=== PATIENT | female | born 1955 | race Caucasian/White ===

== ENCOUNTER → 2017-12-11 11:37 | Outpatient (REF) | payer OTHER, SELFPAY ==
[2017-12-11 13:53] LABS: COMMENT (LAB VIEW ONLY) 25.73 mg/dL; Microalb ug/mg Crea 125.1 ug/mg Cr
== END ==
LOC: NCHCN 11:37
PROVIDERS: PCP Family Medicine; Visit Provider Family Medicine
DX: E11.9 Type 2 diabetes mellitus without complications (principal)
CPT/HCPCS: 82043; 82570

== ENCOUNTER → 2017-12-18 00:20 | Outpatient (CLI) | payer OTHER, SELFPAY ==
--- NOTE | 2017-12-18 08:09 | DI.REPORT_ITS ---
SYMPTOM/DIAGNOSIS: SPLINTER T14.8 LEFT HAND: No fracture or radiopaque foreign body is seen. IMPRESSION: Negative left hand.
== END ==
PROVIDERS: PCP Family Medicine; Visit Provider Family Medicine
DX: S60.552A Superficial foreign body of left hand, initial encounter (principal); T14.90XA Injury, unspecified, initial encounter
CPT/HCPCS: 73130

== ENCOUNTER 2018-01-10 11:55 | Inpatient (IN) | payer OTHER, SELFPAY ==
[2018-01-09 13:20] VITALS: BP 115/64; PULSE 80; RESP 16; TEMP 37; O2SAT 97
[2018-01-10] VITALS (17 sets, daily range): BP systolic 98–128; BP diastolic 37–73; PULSE 63–80; RESP 12–22; TEMP 36–37; O2SAT 95–99
[2018-01-10] MEDS: Lactated Ringers 1,000 ML 125 ML IV ×4 (12:55→23:23)
[2018-01-10] MEDS: LEVOFLOXACIN 500 MG/100 ML BAG 100 MG IVPB (13:50)
[2018-01-10] MEDS: CLINDAMYCIN 900 MG/50 ML BAG 50 MG IVPB (15:45)
--- NOTE | 2018-01-10 17:04 | UTER_PTH ---
PATIENT: Janeen Wolff LOC: U#:[id number] AGE/SX: 62/F ROOM: RE01/10/[address]: Leslie Saini MD : [id number] BED: A DIS: 01/11/2018 SPEC #: [id number] RECD: 01/11/18 12:44 STATUS: JUSTIN REQ #: [id number] JEFFERY: 01/10/18 17:[address]: Leslie Saini DEPT: Surgical Specimen RECD BY: Shari Hoyt ENTERED: 01/11/18 12:47 SP TYPE: UTER OTHR DR: Snata Mckeon Tissues: 1 - UTERUS W OR W/O OVARIES(NOT TUMOR/PROLAPSE) 2 - OVARY NOT TUMOR W OR W/O TUBES 3 - OVARY NOT TUMOR W OR W/O TUBES 4 - VAGINAL BIOPSY Procedures: GROSS AND MICRO LEVEL 2 GROSS AND MICRO LEVEL 4 Comments: [id number]
--- NOTE | 2018-01-10 19:55 | W.PM.OP ---
Date of service: 01/10/18 Operative Note Date of procedure: 01/10/18 Pre-op diagnosis: uterine prolapse Post-op diagnosis: same Procedure: Vaginal hysterectomy BSO Sage culdoplasty anterior cokporraphy The patient was taken to the operating room where she was properly identified and placed on operating table in the dorsal supine position. General anesthesia was induced. The patient was placed in the dorsal supine position and prepped and draped in the normal sterile fashion. A formal timeout procedure was then performed confirming patient and procedure. An exam under anesthesia was performed and it was noted that the patient had complete procidentia and 1/4? cystocele. A Sorensen catheter was then placed in the bladder without difficulty. The cervix was identified and grasped on the anterior and posterior lip with 2 tenaculums. A circumferential injection of 1% lidocaine with epi was then made in the cervix. Using the Bovie cautery on 40 a circumferential incision was made around the cervix. Using the Olivares scissors the vagina was dissected away from the cervix. Attention was then turned to the posterior aspect and the tissue was grasped and the posterior cul-de-sac and entered sharply this area was held with a 0 Vicryl long weighted speculum was then placed the uterosacral ligaments were crossclamped bilaterally with Hilary clamps, suture ligated with 0 Vicryl in a Hilary fashion and held tension was then turned to the anterior aspect and the vagina was dissected off the cervix the vesicle uterine peritoneum was noted. Cul-de-sac entered sharply without difficulty since his retractor was then placed to keep the bladder mobilized away from the surgical field. The paracervical tissue was taken down by cross clamping bilaterally cardiac suture ligated with 0 Vicryl uterine vessels were identified bilaterally cross clamped ?2 and suture ligated in a halo fashion with 0 Vicryl bilaterally. The remainder of the broad ligament was taken down the series of cross clamping with Hilary clamps and suture ligated with 0 Vicryl. The utero- ovarian ligaments were identified cross clamped ?2 bilaterally and the uterus was excised at the utero ovarian ligament. The specimen was sent to pathology for evaluation. The uterine ovarian pedicles were free tied ?1 and suture ligated ?1 with 0 Vicryl bilaterally. Attention was then turned to the bilateral salpingo-oophorectomy portion of the procedure. The right tube and ovary were grasped with the [place] clamp the IP ligament was identified and crossclamped ?2 and cut the pedicle was then tied with a free tie of 0 Vicryl and suture ligated with 0 Vicryl ?1 the pedicle was inspected and found to be hemostatic and attention was turned to the opposite side and the uterus inside the ovary and the fallopian tube grasped the IP ligament was identified crossclamped ?2 cut the pedicle was free tied ?1 with 0 Vicryl and then suture ligated with 0 Vicryl ?1. The pedicles were inspected and found to be hemostatic. The ovaries and fallopian tubes were sent to pathology for permanent evaluation. Attention was then turned to the anterior colporrhaphy portion of the procedure in the posterior aspect of the anterior vagina was clamped laterally with Allis clamps and injection of 1 % lidocaine with epinephrine made along the anterior vaginal midline using the Metzenbaum scissors a small incision was made posterior vagina this was then undermined to the level of the UV junction incised with Metzenbaum scissors the vagina was dissected off the pubo-vesicle fascia and both sharp and blunt dissection once the pillars were well identified a Ros plication suture ?2 was placed at the UV junction and the remainder of the pubovesical fascia was repaired with 2-0 Vicryl in a running interrupted fashion. The vaginal mucosa was trimmed the vaginal mucosa was then closed with 0 Vicryl and the vaginal cuff was closed with 0 Vicryl in a running locked fashion. A vaginal pack with Premarin ointment was then placed in the vagina. There was good support and the Sorensen catheter was left in situ. The patient was awakened and taken recovery in stable condition sponge lap needle and instrument count were correct ?2 Surgeon: Leslie Saini [place] [employer] Specialist: Steve Medley Anesthesia: GRACIELA Estimated blood loss (mL): 400 Pathology: other (Uterus cervic BSO vaginal mucosa ) Complications: None Patient was transported to: PACU Patient's condition: stable Indications: uterine prolapse cystocele Procedure Description: VAginal hysterectomy BSO Anterior colporapphy Mc Calls culdoplasty
--- NOTE | 2018-01-10 20:00 | ROE_ITS ---
Date of service: 01/10/18 Operative Note Date of procedure: 01/10/18 Pre-op diagnosis: uterine prolapse Post-op diagnosis: same Procedure: Vaginal hysterectomy BSO Sage culdoplasty anterior cokporraphy The patient was taken to the operating room where she was properly identified and placed on operating table in the dorsal supine position. General anesthesia was induced. The patient was placed in the dorsal supine position and prepped and draped in the normal sterile fashion. A formal timeout procedure was then performed confirming patient and procedure. An exam under anesthesia was performed and it was noted that the patient had complete procidentia and 1/4? cystocele. A Sorensen catheter was then placed in the bladder without difficulty. The cervix was identified and grasped on the anterior and posterior lip with 2 tenaculums. A circumferential injection of 1 % lidocaine with epi was then made in the cervix. Using the Bovie cautery on 40 a circumferential incision was made around the cervix. Using the Olivares scissors the vagina was dissected away from the cervix. Attention was then turned to the posterior aspect and the tissue was grasped and the posterior cul- de-sac and entered sharply this area was held with a 0 Vicryl long weighted speculum was then placed the uterosacral ligaments were crossclamped bilaterally with Hilary clamps, suture ligated with 0 Vicryl in a Hilary fashion and held tension was then turned to the anterior aspect and the vagina was dissected off the cervix the vesicle uterine peritoneum was noted. Cul-de- sac entered sharply without difficulty since his retractor was then placed to keep the bladder mobilized away from the surgical field. The paracervical tissue was taken down by cross clamping bilaterally cardiac suture ligated with 0 Vicryl uterine vessels were identified bilaterally cross clamped ?2 and suture ligated in a halo fashion with 0 Vicryl bilaterally. The remainder of the broad ligament was taken down the series of cross clamping with Hilary clamps and suture ligated with 0 Vicryl. The utero- ovarian ligaments were identified cross clamped ?2 bilaterally and the uterus was excised at the utero ovarian ligament. The specimen was sent to pathology for evaluation. The uterine ovarian pedicles were free tied ?1 and suture ligated ?1 with 0 Vicryl bilaterally. Attention was then turned to the bilateral salpingo-oophorectomy portion of the procedure. The right tube and ovary were grasped with the [place] clamp the IP ligament was identified and crossclamped ?2 and cut the pedicle was then tied with a free tie of 0 Vicryl and suture ligated with 0 Vicryl ?1 the pedicle was inspected and found to be hemostatic and attention was turned to the opposite side and the uterus inside the ovary and the fallopian tube grasped the IP ligament was identified crossclamped ?2 cut the pedicle was free tied ?1 with 0 Vicryl and then suture ligated with 0 Vicryl ? 1. The pedicles were inspected and found to be hemostatic. The ovaries and fallopian tubes were sent to pathology for permanent evaluation. Attention was then turned to the anterior colporrhaphy portion of the procedure in the posterior aspect of the anterior vagina was clamped laterally with Allis clamps and injection of 1 % lidocaine with epinephrine made along the anterior vaginal midline using the Metzenbaum scissors a small incision was made posterior vagina this was then undermined to the level of the UV junction incised with Metzenbaum scissors the vagina was dissected off the pubo-vesicle fascia and both sharp and blunt dissection once the pillars were well identified a Ros plication suture ?2 was placed at the UV junction and the remainder of the pubovesical fascia was repaired with 2-0 Vicryl in a running interrupted fashion. The vaginal mucosa was trimmed the vaginal mucosa was then closed with 0 Vicryl and the vaginal cuff was closed with 0 Vicryl in a running locked fashion. A vaginal pack with Premarin ointment was then placed in the vagina. There was good support and the Sorensen catheter was left in situ. The patient was awakened and taken recovery in stable condition sponge lap needle and instrument count were correct ?2 Surgeon: Leslie Saini Clerk Stenographer: Steve Medley Anesthesia: GRACIELA Estimated blood loss (mL): 400 Pathology: other (Uterus cervic BSO vaginal mucosa ) Complications: None Patient was transported to: PACU Patient's condition: stable Indications: uterine prolapse cystocele Procedure Description: VAginal hysterectomy BSO Anterior colporapphy Mc Calls culdoplasty
[2018-01-10] MEDS: Insulin REGULAR-Human 100 UNITS/ML UNIT IV (20:27)
[2018-01-10 20:59] LABS: HCT 31.8 % (36.0-46.0); HGB 11.3 g/dL (12.0-15.5); Mean Corp. HGB Concentration 35.5 g/dL (32.0-36.0); Mean Corpuscular Hemoglobin 30.1 pg (27.0-33.0); Mean Corpuscular Volume 84.8 fL (80-95); Mean Platelet Volume 9.4 fL (8.0-11.0); Platelet Count 167 x1000/uL (130-400); RBC 3.75 m/cumm (4.00-5.20); RBC Distribution Width 12.1 % (11.7-14.6); White Blood Cell Count 8.69 k/cumm (4.4-10.8)
[2018-01-10] MEDS: Heparin 5,000 UNITS/ML VIAL 5000 UNITS SC (22:59)
[2018-01-10] MEDS: Ketorolac 30 MG/ML VIAL IVP (22:59)
--- NOTE | 2018-01-10 23:26 | NUR.NOTE ---
2129 alert,aware,oriented x 3 female pt arrived via stretcher to room 209 with running iv ,webster in place from pacuNursing Note:
[2018-01-11 00:58] VITALS: BP 109/69; PULSE 74; RESP 18; TEMP 36.6; O2SAT 98
[2018-01-11 01:03] LABS: HCT 30.1 % (36.0-46.0); HGB 10.9 g/dL (12.0-15.5); Mean Corp. HGB Concentration 36.2 g/dL (32.0-36.0); Mean Corpuscular Hemoglobin 31.1 pg (27.0-33.0); Mean Platelet Volume 9.3 fL (8.0-11.0); Platelet Count 166 x1000/uL (130-400); RBC Distribution Width 11.8 % (11.7-14.6); White Blood Cell Count 8.02 k/cumm (4.4-10.8)
[2018-01-11] MEDS: Ketorolac 30 MG/ML VIAL IVP ×3 (02:35→13:52)
[2018-01-11] MEDS: Normal Saline Flush 10 ML SYR IV ×3 (02:40→13:52)
[2018-01-11 03:26] VITALS: BP 107/65; PULSE 64; RESP 16; TEMP 36.4; O2SAT 97
[2018-01-11 05:10] LABS: HGB 10.7 g/dL (12.0-15.5); Mean Corp. HGB Concentration 35.7 g/dL (32.0-36.0); Mean Corpuscular Hemoglobin 30.4 pg (27.0-33.0); Mean Corpuscular Volume 85.2 fL (80-95); Mean Platelet Volume 9.4 fL (8.0-11.0); Platelet Count 184 x1000/uL (130-400); RBC 3.52 m/cumm (4.00-5.20); RBC Distribution Width 11.9 % (11.7-14.6); White Blood Cell Count 7.72 k/cumm (4.4-10.8)
--- NOTE | 2018-01-11 05:47 | INITIAL_ITS ---
- If Service Date Differs Date of service: 01/11/18 Time of Service: 10:39 Care Management Initial Assess REASON FOR HOSPITALIZATION:: Uterine Prolapse PAST MEDICAL HISTORY/PAST SURGICAL HISTORY:: Bilateral cataracts, Complete uterine prolapse, H/O dermatomyositis, Type 2 diabetes mellitus, Asthma, Hypertension, H/O TIA PREVIOUS FUNCTIONAL STATUS/SOCIAL/FAMILY SUPPORTS:: Janeen resides with her Norris in [place]. She states that she has two children whom both reside in [place]. Janeen works for [employer] in [place] which she states she enjoys. Janeen is independent at baseline, she drives and manages ADL's. CURRENT FUNCTIONAL STATUS:: Janeen is lying in bed when this science writer visits this morning. She is pleasant and receptive to conversation. ADVANCE DIRECTIVES:: None on file Has patient been provided with information about the portal?: Yes Did the patient sign up for the portal?: No CODE STATUS:: Full Code INSURANCE COVERAGE / FINANCIAL ISSUES:: [facility] CURRENT HOME/COMMUNITY SERVICES/EQUIPMENT:: Currently Janeen has no services or medical equipment in the community. PRIMARY CARE PHYSICIAN:: Dr. Mckeon POTENTIAL DISCHARGE NEEDS:: F/U appointment with Dr. Saini PATIENT/FAMILY EDUCATION NEEDS:: Review DC instructions, any limitations, and ongoing DC planning discussion. ANTICIPATED BARRIERS TO DISCHARGE:: None identified at this time. TRANSPORTATION:: Via private vehicle with Norris PLAN:: Janeen will return home with no anticipated services once medically cleared. Janeen will F/U with PCP and plan of care as prescribed. Her Norris will transport when ready. Readmission - Within the Past 30 Days Yes or No: N
[2018-01-11] MEDS: MORPHine 10 MG/ML VIAL IVP (06:23)
[2018-01-11] MEDS: Lactated Ringers 1,000 ML 125 ML IV ×2 (06:25→16:11)
[2018-01-11 07:27] VITALS: BP 110/64; PULSE 75; RESP 18; TEMP 36.8; O2SAT 98
--- NOTE | 2018-01-11 09:30 | PDOC.CMIN ---
- If Service Date Differs Date of service: 01/11/18 Time of Service: 10:39 Care Management Initial Assess REASON FOR HOSPITALIZATION:: Uterine Prolapse PAST MEDICAL HISTORY/PAST SURGICAL HISTORY:: Bilateral cataracts, Complete uterine prolapse, H/O dermatomyositis, Type 2 diabetes mellitus, Asthma, Hypertension, H/O TIA PREVIOUS FUNCTIONAL STATUS/SOCIAL/FAMILY SUPPORTS:: Janeen resides with her Norris in [place]. She states that she has two children whom both reside in [place]. Janeen works for [email or web address] in [employer] which she states she enjoys. Janeen is independent at baseline, she drives and manages ADL's. CURRENT FUNCTIONAL STATUS:: Janeen is lying in bed when this senior mortgage underwriter visits this morning. She is pleasant and receptive to conversation. ADVANCE DIRECTIVES:: None on file Has patient been provided with information about the portal?: Yes Did the patient sign up for the portal?: No CODE STATUS:: Full Code INSURANCE COVERAGE / FINANCIAL ISSUES:: [facility] CURRENT HOME/COMMUNITY SERVICES/EQUIPMENT:: Currently Janeen has no services or medical equipment in the community. PRIMARY CARE PHYSICIAN:: Dr. Mckeon POTENTIAL DISCHARGE NEEDS:: F/U appointment with Dr. Saini PATIENT/FAMILY EDUCATION NEEDS:: Review DC instructions, any limitations, and ongoing DC planning discussion. ANTICIPATED BARRIERS TO DISCHARGE:: None identified at this time. TRANSPORTATION:: Via private vehicle with Norris PLAN:: Janeen will return home with no anticipated services once medically cleared. Janeen will F/U with PCP and plan of care as prescribed. Her Norris will transport when ready. Readmission - Within the Past 30 Days Yes or No: N
[2018-01-11] MEDS: Lisinopril 20 MG TAB PO (09:45)
[2018-01-11] MEDS: Heparin 5,000 UNITS/ML VIAL 5000 UNITS SC (09:45)
--- NOTE | 2018-01-11 10:56 | W.PM.PROGNOT ---
Date of service: 01/11/18 Time of Service: 10:56 Assessment and Plan (1) Cystocele with uterine prolapse: Current visit: No Status: Acute Remove webster catheter this morning Encourage ambulation Voiding trial this afternoon. If able to void and pain well controlled will discharge home this afternoon. (2) History of TIA (transient ischemic attack): Current visit: No Status: Acute Currently on SQ heparin. Will restart Plavix this evening. (3) Diabetes type 2, controlled: Current visit: No Status: Acute Will restart Metformin and Glipizide this morning. Continue to hold insulin for now. Subjective Interval history since last seen: Doing well this morning. Pain well controlled. Ambulatory within room this morning. No nausea or vomiting Tolerating regular diet. No significant vaginal bleeding. Exam Other: Vaginal packing removed with minimal old blood. No active bleeding. Webster catheter in place. Objective Objective Clinical Data: Abnormal lab results 01/10/18 01/11/18 01/11/18 Range/Units 20:54 00:57 05:07 RBC 3.75 L 3.50 L 3.52 L (4.00-5.20) m/cumm Hgb 11.3 L D 10.9 L 10.7 L (12.0-15.5) g/dL Hct 31.8 L D 30.1 L 30.0 L (36.0-46.0) % MCHC 36.2 H (32.0-36.0) g/dL Vital Signs Temp 36.8 C 01/11/18 07:27 Pulse 75 01/11/18 07:27 Resp 18 01/11/18 07:27 BP 110/64 01/11/18 07:27 Pulse Ox 98 01/11/18 07:27 Intake & Output 01/10/18 01/10/18 01/11/18 11:59 23:59 11:59 Intake Total 2138.75 / 2138.75 1469.417 / 1469.417 Output Total 1400 / 1400 900 / 900 Balance 738.75 / 738.75 569.417 / 569.417 Weight 60.3 kg Intake: IV 2118.75 / 2118.75 1469.417 / 1469.417 Oral 20 / 20 Output: Urine 1400 / 1400 900 / 900 Other: Urine Color Yellow Yellow Urine Appearance Clear Clots Comment Small streaks of blood in webster tubing Emesis Description None Laboratory Results WBC 7.72 k/cumm (4.4-10.8) 01/11/18 05:07 RBC 3.52 m/cumm (4.00-5.20) L 01/11/18 05:07 Hgb 10.7 g/dL (12.0-15.5) L 01/11/18 05:07 Hct 30.0 % (36.0-46.0) L 01/11/18 05:07 MCV 85.2 fL (80-95) 01/11/18 05:07 MCH 30.4 pg (27.0-33.0) 01/11/18 05:07 MCHC 35.7 g/dL (32.0-36.0) 01/11/18 05:07 RDW 11.9 % (11.7-14.6) 01/11/18 05:07 Plt Count 184 x1000/uL (130-400) 01/11/18 05:07 MPV 9.4 fL (8.0-11.0) 01/11/18 05:07
[2018-01-11 11:10] VITALS: BP 105/61; PULSE 83; RESP 19; TEMP 36.9; O2SAT 99
--- NOTE | 2018-01-11 12:20 | PHARADMIT ---
Admission Pharmacy Clinical Review UTERINE PROLAPSE Code Status Full Code Current Weight Wgt- 60.3 kg Renally Cleared and Narrow Therapeutic Index Meds CrCl~ 71.18 mL/min Meds-OK QTc Value / Action Taken Program na BP Control, Fever BP- 105/61 Tmax- 37C Electrolytes reviewed na DVT Prophylaxis Heparin 5,00 SC Opiate Usage / Scheduled Bowel Regimen Ordered Yes Yes Plt/SCr for Heparin / Enoxaparin Plts-184 SCr-0.70 INR for Warfarin na H/H stable, WBC/Bands H&H- 10.7/30.0 WBC- 7.72 Antibiotic appropriateness Levaquin Cultures and Sensitivities na Surgical ABX d/c within 24 hr na DM control / Insulin Dosing FSBS- 139 Glipizide, Metformin Heart Failure (Check EF%) (LENNY's, B-Block, Diuretics) Lisinopril, IV to PO Switch No Home Meds Reviewed Yes Home Meds Not Ordered Plavix, Detemir, Comments
[2018-01-11 15:32] VITALS: BP 119/66; PULSE 72; RESP 16; TEMP 37; O2SAT 98
[2018-01-11] MEDS: metFORMIN 500 MG TAB PO (16:59)
== END 2018-01-11 18:56 | disposition home or self-care (01) | DRG 743 ==
LOC: PDS 21:56 → MS 22:20
PROVIDERS: Admitting Provider Obstetrics & Gynecology; PCP Family Medicine; Visit Provider Obstetrics & Gynecology
PROC: 0UT97ZZ Resection of Uterus, Via Natural or Artificial Opening (ICD-10-PCS; CPT 58260; principal; 2018-01-10 08:50)
PROC: 0UT97ZZ Resection of Uterus, Via Natural or Artificial Opening (ICD-10-PCS; CPT 57260; 2018-01-10 08:50)
DX: N81.3 Complete uterovaginal prolapse (principal); E11.9 Type 2 diabetes mellitus without complications; Z79.4 Long term (current) use of insulin; I10 Essential (primary) hypertension; Z86.73 Personal history of transient ischemic attack (TIA), and cerebral infarction without residual deficits
CPT/HCPCS: 58262; 57285; 36415; 80051; 82947; 85027; 86850; 86900; 86901; 88305; 99233; 85025; 88302; 88307; J0131; J1100; J1644; J1885; J1956; J2250; J2270; J2405

== ENCOUNTER 2018-01-10 21:21 | Inpatient (IN) | payer OTHER, SELFPAY ==
[2018-01-09 14:50] LABS: Abs Immature Grans 0.01 k/cumm (0.0-0.09); Absolute Basophil Count 0.06 k/cumm (0.0-0.2); Absolute Eosinophil Count 0.41 k/cumm (0.0-0.7); Absolute Lymphocyte Count 1.79 k/cumm (1.2-3.4); Absolute Monocyte Count 0.37 k/cumm (0.11-0.7); Absolute Neutrophil Count 2.68 k/cumm (1.2-6.7); Basophils % 1.1; Eosinophils % 7.7; HGB 14.1 g/dL (12.0-15.5); Immature Grans % 0.2; Lymphocytes % 33.6; Mean Corp. HGB Concentration 35.3 g/dL (32.0-36.0); Mean Corpuscular Hemoglobin 30.5 pg (27.0-33.0); Mean Corpuscular Volume 86.6 fL (80-95); Mean Platelet Volume 9.4 fL (8.0-11.0); Neutrophils % 50.4; Platelet Count 236 x1000/uL (130-400); RBC 4.62 m/cumm (4.00-5.20); RBC Distribution Width 12.4 % (11.7-14.6); White Blood Cell Count 5.32 k/cumm (4.4-10.8)
[2018-01-09 15:46] LABS: Anion Gap 9.6 mmol/L (3-11); CO2 27.4 mmol/L (21.0-32.0); Chloride 101 mmol/L (98-107); Glucose 95 mg/dL (70-100); Potassium 4.4 mmol/L (3.5-5.1); Sodium 138 mmol/L (136-145)
== END 2018-01-10 21:50 | disposition home or self-care (01) | DRG 951 ==
LOC: DSU 21:49 → MS 21:49
PROVIDERS: Admitting Provider Obstetrics & Gynecology; PCP Family Medicine; Visit Provider Obstetrics & Gynecology
DX: R69 Illness, unspecified (principal)
CPT/HCPCS: 36415; 80051; 82947; 86850; 86900; 86901; 85025

== ENCOUNTER 2018-03-08 09:29 | Day surgery (SDC) | payer OTHER, SELFPAY ==
--- NOTE | 2018-03-08 09:40 | W.PM.DSUDISC ---
Discharge Plan Disposition Patient Disposition: HOME Condition: Good Discharge Details Reason For Visit: LIF FOREIGN BODY Attending Provider: Abiel Maciel Primary Care Provider: Santa Mckeon Home Meds and New Rx's Prescriptions: New ibuprofen 600 mg tablet 600 mg PO TID PRNQty: 30 RF: 3 acetaminophen 500 mg capsule 1,000 mg PO Q8H PRN (Reason: pain) Qty: 90 RF: 0 Continue albuterol sulfate 0.63 MG/3 ML solution for nebulization 0.63 mg Inhalation ALBUTERAL IH 18 GM RF: 0 lisinopril 20 MG tablet 20 mg PO DAILY RF: 0 clopidogrel [Plavix] 75 MG tablet 75 mg PO DAILY Qty: 90 RF: 3 insulin detemir U-100 [Levemir U-100 Insulin] 100 UNIT/1 ML solution RF: 0 estradiol [Estrace] 0.01 % (0.1 mg/gram) cream 1 gm VG .three times weekly Qty: 42.5 RF: 0 glipizide 10 MG tablet extended release 24hr 10 mg PO DAILY RF: 0 metformin [Fortamet] 500 MG tablet extended release 24hr 500 mg PO BID RF: 0 meclizine 25 MG tablet 25 mg PO Q6H PRN (Reason: Vertigo) Qty: 15 RF: 0 Discharge Instructions Additional Instructions: Activity: You may use your finger for light activity. No heavy gripping or lifting. Gentle active motion is encouraged after the initial dressing is removed. Dressings: You may remove the initial dressing after 48-72 hours. You can then apply a large bandaid or gauze dressing. The wound may get wet after 48 hours. Medications: You should take Tylenol and Ibuprofen for pain. You may apply ice. Follow-up: 7 days Activity:: Elevate Remove Dressings/Wound Care:: 72 hours Shower/Bathe:: 72 hours Diet:: As Tolerated Discharge Orders Discharge Orders: Discharge Order (Routine); Ordered 03/08/18 Ordered By: Abiel Maciel DS: Diagnosis Discharge Diagnosis (1) Foreign body of left index finger: Status: Acute
[2018-03-08 09:47] VITALS: BP 115/55; PULSE 64; RESP 16; TEMP 36.2; O2SAT 99
[2018-03-08] MEDS: Bupivacaine 0.25% Pres-Free 30 ML VIAL (10:13)
--- NOTE | 2018-03-08 17:41 | ROE_ITS ---
DATE OF SURGERY: March 08, 2018 PREOPERATIVE DIAGNOSIS: Left index finger foreign body, contracture of left index finger. POSTOPERATIVE DIAGNOSIS: Same. SURGERY: Excision of foreign body from left palmar index finger with release of thickened fascial ti ssue. SURGEON: Abiel Maciel M.D. ANESTHESIA: Local. ESTIMATED BLOOD LOSS: Minimal. COMPLICATIONS: None. DISPOSITION: The patient was awakened from anesthesia and taken to the PACU in a stable condition. INDICATION FOR PROCEDURE: Janeen is a 62-year-old who one month ago was coming down some railing when a piece of wood seemed to penetrate her left index finger volar surface. She was unable to remove a ll of it. Since that time she has had increasing pain as well as difficulty with flexion of the left index finger. She had tried to remove it and tried to give this time. However, it continued to bot her her. Given the patient's history and the examination, I did offer an excision of a foreign body. I discussed the risks of the procedure to include incomplete removal of the foreign body, pain, sti ffness, and damage to nerves and vessels. Despite these risks, she elected to proceed. PROCEDURE DESCRIPTION: Janeen was greeted in the preoperative holding area. Her identity was confirm ed and the correct side was identified and marked. The patient was taken back to the Operating Room and placed in a supine position. The left hand was placed on the hand table. The left index finger was identified as the correct site. The left hand was then prepped with ChloraPrep and draped in a s tandard fashion. No prophylactic antibiotics were necessary given the clean elective nature of this hand procedure. A time-out was performed for safe surgery. A Lux type incision was made starting at the flexion crease of the MCP joint and moving proximall y towards the distal palmar flexion crease. I yesenia this incision down directly over the area where s he felt the most prominence of her pain. The surgical site was then anesthetized with 0.25% bupivaca ine. Once the anesthetic had set up, the incision was made. This was taken down sharply through the skin and dermis. Blunt dissection was used after this point. Immediately, I was able to encounter a piece of wood which was quite narrow in diameter but about 5 mm in length. It was pointed directly down towards the flexor tendon. Dissection was carried down towards the flexor tendon but it did no t seem to penetrate the flexor tendon. However, there was a significant amount of dense fascial adhe sions in this area which seemed to be tethered to the flexor tendon and the superficial skin. These were resected. This then exposed the superior portion of the A1 ilia. I released the A1 ilia. I did not see any other remnant of foreign body in the tendon which would be restricting motion. She was then able to demonstrate nearly full flexion with the finger. The wound was then irrigated. No other foreign material was seen. The skin was closed with three #4-0 nylon sutures. A dressing was applied with Xeroform, 4x4s, and a conform dressing. At the end of the case all counts were correct.
== END 2018-03-08 11:00 | disposition home or self-care (01) ==
PROVIDERS: PCP Family Medicine; Visit Provider Student in an Organized Health Care Education/Training Program
PROC: (CPT 10120; principal; 2018-03-08 12:00)
DX: S60.451A Superficial foreign body of left index finger, initial encounter (principal); W45.8XXA Other foreign body or object entering through skin, initial encounter; M20.092 Other deformity of left finger(s)
CPT/HCPCS: 10120; 26455

== ENCOUNTER 2018-03-16 11:25 | Outpatient (CLI) | payer OTHER, SELFPAY ==
--- NOTE | 2018-03-16 11:23 | DI.RAD_ITS ---
SYMPTOM/DIAGNOSIS: RT SHOULDER PAIN RIGHT SHOULDER: Three views. No priors. Mild hypertrophic changes are seen at the acromioclavicular joint. The glenohumeral joint appears well maintained. The bones are intact and normally mineralized. Benign appearing soft tissue calcifications are present. IMPRESSION: Mild degenerative changes of the right AC joint.
== END 2018-03-16 11:45 ==
PROVIDERS: PCP Family Medicine; Visit Provider Student in an Organized Health Care Education/Training Program
DX: M25.511 Pain in right shoulder (principal); M19.011 Primary osteoarthritis, right shoulder
CPT/HCPCS: 73030

== ENCOUNTER 2018-03-22 00:28 | Outpatient (CLI) | payer OTHER, SELFPAY ==
--- NOTE | 2018-03-22 11:30 | DI.MAMMO_ITS ---
SYMPTOMS/DIAGNOSIS: SCREENING, Z12.31 MAMMOGRAM: Mammograms were interpreted according to the usual protocol including computer analysis with CAD system, tomosynthesis and C view imaging. The breasts are of moderate density with fairly symmetrical distribution of fibroglandular tissue. No dominant mass or clumped microcalcification is identified in either breast. The current examination is compared with previous examinations including March 2016 and there has been no gross interval change in appearance in comparison with the previous studies. CONCLUSION: No specific evidence of malignancy at this time. Routine screening examinations are suggested at yearly intervals in this age group according to the ACS/ACR guidelines. Category I. Breast density Category B. MQSA ASSESSMENT OF FINDINGS: Negative. Category 1. Patient will receive a letter notifying them of these results. BI-RADS category B. There are scattered areas of fibroglandular density.
== END 2018-03-22 00:48 ==
PROVIDERS: PCP Family Medicine; Visit Provider Family Medicine
DX: Z12.31 Encounter for screening mammogram for malignant neoplasm of breast (principal)
CPT/HCPCS: 77063; 77067

== ENCOUNTER 2018-05-25 09:35 | Day surgery (SDC) | payer OTHER, SELFPAY ==
[2018-05-25 09:49] VITALS: BP 138/85; PULSE 83; RESP 19; TEMP 35.2; O2SAT 100
[2018-05-25] MEDS: Lactated Ringers 1,000 ML 80 ML IV (10:12)
--- NOTE | 2018-05-25 12:26 | W.COLOREPORT ---
Date of service: 05/25/18 Time of Service: 12:26 Colonoscopy Report Date of procedure: 05/25/18 Pre-op diagnosis general: Screening colonoscopy Post-op diagnosis procedure note: same Procedure: Screening colonoscopy Surgeon: Ruddy Deras III Anesthesia proc note operative: MAC Pathology: none sent Complications: Other (Patient at 70 cm of scope began to have hiccups in the scope was retracted and patient was given more anesthesia with intraprocedure consultation to Dr. Cervantes) Disposition: PACU Indications: Screening colonoscopy Prep: PeggyLY Findings: Patient had a large internal hemorrhoid that was noted and some areas of sigmoid diverticulum Procedure Description: After informed consent was obtained the patient was taken to the procedure room and placed in a left decubitous position. Monitors were applied and a time out was done. The patients name, date of , procedure, allergies to medications and metal in their body was reviewed. The patient was then sedated. Once sedated and comfortable a rectal exam was done. External exam was normal. Internal exam revealed a normal sphincter tone and no palpable masses. The scope was then introduced and retrofelexed. An internal hemorrhoid was identified. The scope was then advanced to the cecum min difficulty. At 70 cm of scope the patient developed uncontrolled hiccups and the case was aborted at this time. Intraoperative consultation to Dr. Cervantes was made and after additional medications by anesthesia the scope was reperformed and to the cecum at 80 cm. The TI and appendiceal orifice were identified. The prep was adequate. The scope was then slowly retracted over 6 minutes back into the rectum. No Polyps were removed. The scope was removed and the patient was woken up and taken back to Same day surgery in stable condition. The patient tolerated the procedure well and there were no immediate complications. Follow up: The patient should follow up in 10 years unless they develop changes in bowel habits or other new gastrointestinal complaints.
--- NOTE | 2018-05-25 12:29 | W.PM.DSUDISC ---
Discharge Plan Disposition Patient Disposition: HOME Condition: Stable Discharge Details Reason For Visit: Screening colonoscopy Attending Provider: Ruddy Dreas III Primary Care Provider: Santa Mckeon Home Meds and New Rx's Prescriptions: Continued bisacodyl [Dulcolax (bisacodyl)] 5 mg tablet,delayed release (DR/EC) 5 mg PO ONCE Qty: 4 RF: 0 polyethylene glycol 3350 17 gram/dose powder 255 g PO ONCE Qty: 255 RF: 0 lisinopril 20 MG tablet 20 mg PO DAILY RF: 0 clopidogrel [Plavix] 75 MG tablet 75 mg PO DAILY Qty: 90 RF: 3 Levemir U-100 Insulin 100 UNIT/1 ML solution 15 unit subcut HS RF: 0 ibuprofen 600 mg tablet 600 mg PO TID PRNQty: 30 RF: 3 acetaminophen 500 mg capsule 1,000 mg PO Q8H PRN (Reason: pain) Qty: 90 RF: 0 glipizide 10 MG tablet extended release 24hr 10 mg PO DAILY RF: 0 metformin [Fortamet] 500 MG tablet extended release 24hr 500 mg PO BID RF: 0 meclizine 25 MG tablet 25 mg PO Q6H PRN (Reason: Vertigo) Qty: 15 RF: 0 Discharge Instructions Stand Alone Forms: Colonoscopy Post Instructions, Juan Longoria (DSU) Activity:: Activity as Tolerated Diet:: As Tolerated Discharge Orders Discharge Orders: Discharge Order (Routine); Ordered 05/25/18 Ordered By: Ruddy Deras III DS: Diagnosis Discharge Diagnosis (1) Internal hemorrhoid: Status: Acute (2) Diverticulum of large intestine: Status: Acute
[2018-05-25 12:59] VITALS: BP 149/96; PULSE 82; RESP 18; TEMP 35.8; O2SAT 99
[2018-05-25 14:00] VITALS: BP 129/65; PULSE 84; RESP 18; TEMP 36.5; O2SAT 99
== END 2018-05-25 14:20 | disposition home or self-care (01) ==
PROVIDERS: PCP Family Medicine; Visit Provider Surgery
PROC: 0DJD8ZZ Inspection of Lower Intestinal Tract, Via Natural or Artificial Opening Endoscopic (ICD-10-PCS; CPT 45378; principal; 2018-05-25 10:30)
DX: Z12.11 Encounter for screening for malignant neoplasm of colon (principal); K64.0 First degree hemorrhoids; K57.30 Diverticulosis of large intestine without perforation or abscess without bleeding; R06.6 Hiccough; E11.9 Type 2 diabetes mellitus without complications; Z79.4 Long term (current) use of insulin; I10 Essential (primary) hypertension
CPT/HCPCS: 45378

== ENCOUNTER 2019-05-23 07:57 | Outpatient (CLI) | payer OTHER, SELFPAY ==
[2019-05-23 09:20] LABS: HCT 40.1 % (36.0-46.0); HGB 13.8 g/dL (12.0-15.5); Mean Corp. HGB Concentration 34.4 g/dL (32.0-36.0); Mean Corpuscular Hemoglobin 30.4 pg (27.0-33.0); Mean Corpuscular Volume 88.3 fL (80-95); Mean Platelet Volume 9.5 fL (8.0-11.0); Platelet Count 170 x1000/uL (130-400); RBC 4.54 m/cumm (4.00-5.20); RBC Distribution Width 11.9 % (11.7-14.6)
[2019-05-23 09:29] LABS: Hemoglobin A1C 7.5 % (3.8-5.6)
[2019-05-23 10:31] LABS: ALT 18 U/L (14-59); AST 18 U/L (15-37); Alkaline Phosphatase 89 U/L (46-116); Anion Gap 9.1 mmol/L (3-11); BUN 13 mg/dL (7-18); Bilirubin, Total 1.1 mg/dL (0.2-1.0); CO2 27.9 mmol/L (21.0-32.0); CREATININE 0.68 mg/dL (0.55-1.02); Calcium 9.3 mg/dL (8.5-10.1); Chloride 100 mmol/L (98-107); Ferritin 159 ng/mL (8-252); Glucose 217 mg/dL (74-106); Potassium 4.5 mmol/L (3.5-5.1); Sodium 137 mmol/L (136-145); Total Protein 7.3 g/dL (6.4-8.2)
== END 2019-05-23 08:17 ==
PROVIDERS: PCP Family Medicine; Visit Provider Family Medicine
DX: E11.9 Type 2 diabetes mellitus without complications (principal); I10 Essential (primary) hypertension; K76.0 Fatty (change of) liver, not elsewhere classified
CPT/HCPCS: 36415; 80053; 85027; 82728; 83036

== ENCOUNTER 2019-07-22 00:14 | Outpatient (CLI) | payer OTHER, SELFPAY ==
--- NOTE | 2019-07-22 09:19 | DI.MAMMO_ITS ---
EXAM: MG MAMMO SCREENING CLINICAL HISTORY: SCREENING, Z12.31 TECHNIQUE: Bilateral full field digital CC and MLO mammographic images were obtained with 3D tomosyn thesis and utilizing computer aided detection (CAD). COMPARISON: Available for comparison. FINDINGS: Masses/Architectural Distortion: None seen. Microcalcifications: No suspicious pleomorphic-type are seen. Skin Thickening/Nipple Retraction: None. IMPRESSION: 1. No significant interval change with no specific features of malignancy noted. 2. Unless there is more urgent need, screening mammography is recommended, as per [employer] guidelines. BI-RADS Cat 1 - Negative Breast Density - Category B - Scattered areas of fibroglandular density A negative radiographic report should not delay biopsy if a dominant or clinically suspicious mass is present. Up to ten percent of cancers are not identified on mammography. A negative report may reinforce clinical impression. Adenosis and dense breasts may obscure an underlying neoplasm. False positive reports average 6 to 10%. Patient will receive a letter notifying them of these results.
== END 2019-07-22 00:34 ==
PROVIDERS: PCP Family Medicine; Visit Provider Family Medicine
DX: Z12.31 Encounter for screening mammogram for malignant neoplasm of breast (principal)
CPT/HCPCS: 77063; 77067

== ENCOUNTER 2019-11-05 01:36 | Outpatient (CLI) | payer OTHER, SELFPAY ==
--- NOTE | 2019-11-05 | DI.US_ITS ---
EXAM: US ABDOMEN CLINICAL HISTORY: FATTY INFILTRATION OF LIVER, K76.0, FIB4=1.1 09/2016 TECHNIQUE: Ultrasound abdomen performed using standard protocol. COMPARISON: No exams were available for comparison FINDINGS: ABDOMINAL AORTA AND IVC: Visualized portions normal caliber. PANCREAS: Normal where visualized. LIVER: Diffuse increased echogenicity consistent with fatty infiltration. No hepatic mass is seen. Hepatopedal flow in the Portal Vein. GALLBLADDER: No evidence of cholelithiasis. No evidence of wall thickening. No pericholecystic fluid identified. BILIARY SYSTEM: Common bile duct measures 2 mm. No intrahepatic biliary ductal dilation. MELÉNDEZ'S SIGN: Negative. KIDNEYS: Kidneys are symmetric in size. No evidence of renal calculi. No evidence of hydronephrosis. No renal mass or cyst identified. SPLEEN: Not enlarged. ASCITES: None seen. IMPRESSION: Hepatic steatosis. DATA REPOSITORY:
== END 2019-11-05 01:56 ==
PROVIDERS: PCP Family Medicine; Visit Provider Family Medicine
DX: K76.0 Fatty (change of) liver, not elsewhere classified (principal)
CPT/HCPCS: 76700

== ENCOUNTER 2019-12-03 00:31 | Outpatient (CLI) | payer OTHER, SELFPAY ==
--- NOTE | 2019-12-03 09:15 | DI.NM_ITS ---
APPROVED REPORT Exam: Exercise Treadmill Patient Location: Out-Patient Room/Bed: BMI: 20.35 Baseline Rhythm: Sinus Rhythm Indications: Chest Pain on exertion Medical History Medical History: HTN, Stroke/TIA, CAD non obstructive, Diabetic ??? Insulin Cardiac Medications: Lisinopril, Clopidogrel/ Plavix Allergies: penicillin, sulfa Cardiac Risk Factors: HTN, CVD, Asthma, Diabetes (insulin) Pretest Chest Pain Characteristics: No chest pain Exercise History: Physically active Lung Sounds: Clear to auscultation Heart Sounds: Regular Stress Test Details Test: Exercise stress testing was performed using a Alonso protocol. Nuclear Acquisition: Rest Tc-99m/Stress Tc-99m 1 day Rest Isotope: Tc-99m Sestamibi. Dose: 10.6 Date: 12/03/2019 Injection Time: 0915 Stress Isotope: Tc-99m Sestamibi. Dose: 32 Date: 12/03/2019 Injection Time: 1033 HR Resting HR Supine: 61 bpm Max Heart Rate (APMHR): 158 bpm Resting HR Standin bpm Target HR (85% APMHR): 134 bpm Max HR Achieved: 145 bpm % of APMHR: 91 Recovery HR: 68 bpm HR response to stress: Normal HR response to stress BP Resting BP Supine: 148/70 mmHg Resting BP Standin/72 mmHg Max BP: 164/62 mmHg Recovery BP: 140/70 mmHg BP response to stress: Abnormal hypotensive response to stress. ECG Resting ECG: Sinus Rhythm, RBBB Stress ECG: Sinus Tachycardia ST Change: Downsloping ST depression, Horizontal ST depression Maximum ST Deviation: -2.3 mm Arrhythmia: APC's Comment: 3/10 chest tightness in stage 3 only Recovery ECG: Sinus Rhythm Comment: periods of slower then faster rates in recovery- between 63 and 85 bpm. Clinical Reason for Termination: Target HR Achieved Stress Symptoms: Chest pain Exercise duration: 6 min39 sec Highest Stage Reached: Stage 3: 3.4 mph at 14% grade. Exercise capacity: 8.06 METs Functional Capacity: Average Capacity Stress ECG Conclusion 1. Resting electrocardiogram showed right bundle branch block 2. Patient exercised on the Alonso protocol and completed a workload of 8.06 METS 3. Normal heart rate and blood pressure response to exercise. The patient achieved 91% of predicted heart rate for age 4. Chest tightness was present in the last stage of exercise relieved with rest 5. Electrocardiographically consistent with myocardial ischemia, with [address] depression in the anter olateral leads peak exercise 6. There were no significant dysrhythmias Critical Notification Critical Value: No MPI Conclusion Normal myocardial perfusion without evidence of ischemia or prior infarction EF 63% Radiologist Interpretation Radiologist agrees with Delivery Crew Worker's Interpretation. Radiologist Interpretation by: Deon Odom MD Interpretation Date/Time: 12/09/2019 14:52:21
== END 2019-12-03 00:51 ==
PROVIDERS: PCP Family Medicine; Visit Provider Family Medicine
DX: R07.89 Other chest pain (principal); I10 Essential (primary) hypertension; I25.10 Atherosclerotic heart disease of native coronary artery without angina pectoris; E11.9 Type 2 diabetes mellitus without complications; Z79.4 Long term (current) use of insulin; J45.909 Unspecified asthma, uncomplicated; I45.19 Other right bundle-branch block; R94.31 Abnormal electrocardiogram [ECG] [EKG]
CPT/HCPCS: 78452; 93017

== ENCOUNTER 2020-02-25 07:28 | Outpatient (CLI) | payer OTHER, SELFPAY ==
[2020-02-27 02:09] LABS: COVID-19 RT-PCR Result NEGATIVE (Negative)
== END 2020-02-25 07:48 ==
PROVIDERS: PCP Family Medicine; Visit Provider Family Medicine
DX: Z11.59 Encounter for screening for other viral diseases (principal); Z01.811 Encounter for preprocedural respiratory examination
CPT/HCPCS: U0003

== ENCOUNTER 2020-04-10 02:25 | Outpatient (CLI) | payer OTHER, SELFPAY ==
[2020-04-11 17:08] LABS: COVID-19 RT-PCR Result NEGATIVE (Negative)
== END 2020-04-10 02:45 ==
PROVIDERS: PCP Family Medicine; Visit Provider Family Medicine
DX: Z11.59 Encounter for screening for other viral diseases (principal); Z01.811 Encounter for preprocedural respiratory examination
CPT/HCPCS: U0003

== ENCOUNTER 2020-04-13 03:23 | Outpatient (CLI) | payer OTHER, SELFPAY ==
[2020-04-13] MEDS: Albuterol HFA 18 GM 200 PUFF INH IH (11:20)
[2020-04-13] MEDS: Inhaler, Assist Device 1 EACH MC (11:21)
--- NOTE | 2020-04-15 12:32 | W.PFT ---
Date of service: 04/13/20 Time of Service: 10:13 Pulmonary Function Test Result Interpretation Spirometry: No evidence of obstructive airways disease, no bronchodilator response Lung Volumes: Mild restriction Diffusion Capacity: Moderately reduced which is normal when corrected to alveolar volume. This represents a somewhat suboptimal patient effort therefore these results are questionable Airway Pressure: Normal Impression Mild restrictive pattern. There is mild diffusion defect which is normal when corrected to alveolar volume, however that effort was somewhat suboptimal, therefore the DLCO measurement results are questionable. Clinical Correlation therefore is recommended.
== END 2020-04-13 03:43 ==
PROVIDERS: PCP Family Medicine; Visit Provider Family Medicine
DX: R06.09 Other forms of dyspnea (principal); R07.89 Other chest pain
CPT/HCPCS: 94060; 94726; 94729

== ENCOUNTER 2020-04-17 11:42 | Outpatient (REF) | payer OTHER, SELFPAY ==
[2020-04-17 19:00] LABS: HCT 38.9 % (36.0-46.0); HGB 13.6 g/dL (11.2-15.7); MCH 30.4 pg (27.0-33.0); MCV 86.8 fL (80-95); MPV 10.6 fL (8.0-11.0); Platelet Count 203 10^3/uL (130-400); RBC 4.48 10^6/uL (3.93-5.22); RDW 11.9 % (11.7-14.6); RDW-SD 37.8 fL; WBC 4.53 10^3/uL (4.4-10.8)
[2020-04-17 19:12] LABS: ALT 22 U/L (14-59); AST 18 U/L (15-37); Albumin 4.2 g/dL (3.4-5.0); Alkaline Phosphatase 70 U/L (46-116); Anion Gap 8.6 mmol/L (3-11); BUN 15 mg/dL (7-18); Bilirubin, Total 1.3 mg/dL (0.2-1.0); CO2 28.4 mmol/L (21.0-32.0); CREATININE 0.73 mg/dL (0.55-1.02); Calcium 9.3 mg/dL (8.5-10.1); Calculated LDL 121 mg/dL (<100); Chloride 100 mmol/L (98-107); Cholesterol 196 mg/dL (<200); Glucose 149 mg/dL (74-106); HDL Cholesterol 52 mg/dL (40-60); Potassium 4.7 mmol/L (3.5-5.1); Sodium 137 mmol/L (136-145); Total Protein 7.3 g/dL (6.4-8.2); Triglyceride 116 mg/dL (<150)
== END 2020-04-17 12:02 ==
LOC: NCHCN 11:42
PROVIDERS: PCP Family Medicine; Visit Provider Family Medicine
DX: E11.9 Type 2 diabetes mellitus without complications (principal); Z86.79 Personal history of other diseases of the circulatory system; K76.0 Fatty (change of) liver, not elsewhere classified
CPT/HCPCS: 80053; 80061; 85027; 83036

== ENCOUNTER 2020-04-24 12:13 | Outpatient (REF) | payer OTHER, SELFPAY ==
[2020-04-24 15:03] LABS: COMMENT (LAB VIEW ONLY) 81.08 mg/dL; Microalb ug/mg Crea 4.9 ug/mg Cr
== END 2020-04-24 12:33 ==
LOC: NCHCN 12:13
PROVIDERS: PCP Family Medicine; Visit Provider Family Medicine
DX: E11.9 Type 2 diabetes mellitus without complications (principal)
CPT/HCPCS: 82043; 82570

== ENCOUNTER 2020-07-22 01:00 | Outpatient (CLI) | payer OTHER, SELFPAY ==
--- NOTE | 2020-07-22 | DI.MAMMO_ITS ---
EXAM: MAMMO SCREENING CLINICAL HISTORY: SCREENING, Z12.31. TECHNIQUE: Bilateral full field digital CC and MLO mammographic images were obtained with 3D tomosyn thesis and utilizing computer aided detection (CAD). COMPARISON: Prior mammograms dating back to 2010, the most recent being July 2019. FINDINGS: Asymmetric densities and calcifications in both breasts are unchanged from prior studies. Also large calcification in the right axilla, probably large calcified lymph node. This is also unchanged from prior studies. There are no new spiculated masses nor new malignant-appearing microcalcification groups in either br east. There is no significant architectural distortion nor skin thickening-retraction. IMPRESSION: Stable benign findings. No radiographic evidence of malignancy. BI-RADS Category 1 - Negative Breast Density - Category B - Scattered areas of fibroglandular density Breast density Category C or D implies that the patient has dense breast tissue. Dense breast tissue can make it harder to find cancer on a mammogram. Dense breast tissue is also associated with an incr eased risk of breast cancer. This information about the result of the mammogram report was provided to the patient to raise their awareness. Use this report when you speak with the patient about their risks for breast cancer, which includes their family history. At that time, you may recommend additional screening tests (Ultrasoun d or MRI) as these tests may add significant information. A negative radiographic report should not delay biopsy if a dominant or clinically suspicious mass is present. Up to ten percent of cancers are not identified on mammography. A negative report may reinforce clinical impression. Adenosis and dense breasts may obscure an underlying neoplasm. False positive reports average 6 to 10%. Patient will receive a letter notifying them of these results.
== END 2020-07-22 01:20 ==
PROVIDERS: PCP Family Medicine; Visit Provider Family Medicine
DX: Z12.31 Encounter for screening mammogram for malignant neoplasm of breast (principal); R92.1 Mammographic calcification found on diagnostic imaging of breast
CPT/HCPCS: 77063; 77067

== ENCOUNTER 2020-09-30 15:24 | Outpatient (REF) | payer OTHER, SELFPAY ==
--- OUTSIDE RECORDS SUMMARY | 2020-09-30 15:26 | XMS_ITS ---
:1955 Author Care Team Providers Name Role Phone MARCELO Vy RIVERS Primary Care Provider [phone] Allergies Code Code System Name Reaction Severity Status Onset 723 RxNorm Amoxicillin ? ? Active ? 20301012 RxNorm Keflex ? ? Active ? Penicillins ? ? Active ? Medications Name Status Start Date Stop Date ? ? clopidogrel 75 mg tablet Active ? Not mayte ilable glipizide ER 10 mg tablet, extended Active ? Not available release 24 hr latanoprost 0.005 % eye drops Active ? No t available Levemir FlexTouch U-100 Insulin 100 Active ? Not available unit/mL (3 mL) subcutaneous pen lisinopril 20 mg tablet Active ? Not avai lable metoprolol succinate ER 25 mg Completed ? tablet,extended release 24 hr nitroglycerin 0.4 mg sublingual tablet Completed ? 05/29/2020 Proair Digihaler 90 mcg/actuation aerosol powder breath act, sen sor Active ? Not available Inhale 2 puffs every 4 hours by inhalation route. TRUEplus Pen Needle 31 gauge x 3/16 Active ? Not available Problems Name Status Onset Date Source ? Type 2 Diabetes Mellitus without Complication Active ? Hypertensive Disorder Active 02/19/2020 ? Lesion of Liver Active 02/19/2020 ? Dermatomyositis Active 02/19/2020 ? Osteoarthritis Active 02/19/2020 ? Vertigo Active 02/19/2020 ? Dyspnea Active 02/19/2020 ? Tight Chest Active 02/19/2020 ? Abdominal Bloating Active 02/19/2020 ? History of Cardiovascular Disease Active 02/19/2020 ? Alcohol Intake Exceeds Recommended Daily Active 020 ? Limit Procedures Date Name Performed by ? 05/29/2020 CT, Chest, W/o Contrast Xray [facility] [address] [place], [place] [address] (Work [address]) Results Lab Results None recorded. Past Encounters 05/29/2020 Dyspnea; Dermatomyositis Danuta Burks MD: [address] [place] [address] [address], [place] [address], Ph. Social History Tobacco Smoking Status Never Smoker Vaccine List Vaccine Type influenza, injectable, quadrivalent 05/30/2019 pneumococcal polysaccharide PPV23 11/09/2001 Td, adsorbed, preservative free, adult u se, Lf unspecified 06/20/2003 Tdap 05/30/2019 Plan of Care Reminders Provider Appointments None ? ? recorded. Lab None ? ? recorded. Referral None ? ? recorded. Procedures None ? ? recorded. Surgeries None ? ? recorded. Imaging None ? ? recorded. Vitals Height Weight BMI Blood Pressure 171.45 cm 61.2 kg 20.8 kg/m2 122/62 mm[Hg]
[2020-09-30 18:13] LABS: Hemoglobin A1C 8.2 % (<5.7)
[2020-10-01 02:52] LABS: Vitamin D 25 Total 36.9 ng/mL (30-100)
[2020-10-02 09:55] LABS: HIV-1/2 Ag & Ab Screen Negative (Negative)
== END 2020-09-30 15:25 | disposition home or self-care (01) ==
LOC: NCHCN 15:24
PROVIDERS: PCP Family Medicine; Visit Provider Family Medicine
DX: E55.9 Vitamin D deficiency, unspecified (principal); E11.9 Type 2 diabetes mellitus without complications; Z00.00 Encounter for general adult medical examination without abnormal findings; Z11.4 Encounter for screening for human immunodeficiency virus [HIV]
CPT/HCPCS: 82306; 87389; 83036

== ENCOUNTER 2020-11-19 02:18 | Outpatient (CLI) | payer OTHER, SELFPAY ==
--- NOTE | 2020-11-19 | DI.RAD_ITS ---
Exam(s) XR CHEST 2V PA LATERAL EXAM: XR CHEST 2V PA LATERAL CLINICAL HISTORY: SOB,R06.02,DERMATOMYOSITIS, M33.90. TECHNIQUE: 2D digital imaging was performed. COMPARISON: No exams were available for comparison FINDINGS: Heart size is normal. The mediastinum is not widened. Lungs are clear. No infiltrates nor pleural effusions. IMPRESSION: No acute pulmonary findings. DATA REPOSITORY: RADIATION DOSE DELIVERED:
== END 2020-11-19 02:38 ==
PROVIDERS: PCP Family Medicine; Visit Provider Internal Medicine Rheumatology
DX: R06.02 Shortness of breath (principal); M33.90 Dermatopolymyositis, unspecified, organ involvement unspecified
CPT/HCPCS: 71046

== ENCOUNTER 2020-12-16 02:24 | Outpatient (CLI) | payer OTHER, SELFPAY ==
--- NOTE | 2020-12-16 | DI.CT_ITS ---
Exam(s) CT CHEST W EXAM: CT CHEST W CLINICAL HISTORY: WT LOSS,R63.4,SOB,R06.02,DERMATOMYOSITIS,M33.90 TECHNIQUE: Imaging Protocol: Axial computed tomography images with coronal and sagittal reformatted images were created and reviewed CONTRAST MATERIAL: Intravenous: Omnipaque 350 Contrast volume:structured data in ml. COMPARISON: CT ABD PELVIS WITH CONTRAST from 09/02/2011 CT ABD PELVIS WITH CONTRAST from 09/02/2011 CR XR shoulder RT complete 2+V from 03/16/2018 CR XR shoulder RT complete 2+V from 03/16/2018 CR XR CHEST 2V PA LATERAL from 11/19/2020 CR XR CHEST 2V PA LATERAL from 11/19/2020 FINDINGS: Tracheobronchial tree: No bronchiectasis or mucous plugging. Mediastinum and Elisabeth: No dominant adenopathy or fluid collection. Pulmonary parenchyma: No consolidation or dominant measurable mass. No interstitial or nodular change s. Respiratory motion lung bases. Pleura: No effusion or pneumothorax. Heart: The heart is not dilated. Minimal coronary artery calcifications are seen. Aorta: Thoracic aorta non-dilated. Minimal calcification. Upper abdomen: Unremarkable. Lymph nodes: Within normal limits. Bones: Disc osteophytes thoracic spine. Soft tissues: Scattered calcifications in the chest wall. IMPRESSION: No acute abnormality. RADIATION DOSE DELIVERED: 361.72mGy.cm Total DLP DATA REPOSITORY: All CT scans at this facility are submitted to the National Radiology Data Registry (NRDR) Dose Index Registry (DIR) with the [employer] ([employer]). RADIATION OPTIMIZATION: All CT scans at this facility use at least one of these dose optimization te chniques: automated exposure control; mA and/or kV adjustment per patient size (includes targeted exa ms where dose is matched to clinical indication); or iterative reconstruction.
[2020-12-16 15:20] LABS: CREATININE 0.7 mg/dL (0.55-1.02)
[2020-12-16] MEDS: Normal Saline - Diluent 50 ML VIAL IV (15:46)
[2020-12-16] MEDS: Omnipaque 350 MG/ML 100 ML BTL IJ (15:55)
== END 2020-12-16 02:44 ==
PROVIDERS: PCP Family Medicine; Visit Provider Internal Medicine Rheumatology
DX: R63.4 Abnormal weight loss (principal); M33.90 Dermatopolymyositis, unspecified, organ involvement unspecified; R06.02 Shortness of breath
CPT/HCPCS: 71260; 82565; J3490

== ENCOUNTER 2021-02-12 15:53 | Outpatient (REF) | payer OTHER, SELFPAY ==
[2021-02-12 16:18] LABS: Hemoglobin A1C 7.8 % (<5.7)
== END 2021-02-12 15:54 | disposition home or self-care (01) ==
LOC: NCHCN 15:53
PROVIDERS: PCP Family Medicine; Visit Provider Family Medicine
DX: E11.9 Type 2 diabetes mellitus without complications (principal)
CPT/HCPCS: 83036

== ENCOUNTER 2021-02-19 13:00 | Outpatient (REF) | payer OTHER, SELFPAY ==
[2021-02-19 15:50] LABS: COMMENT (LAB VIEW ONLY) 67.94 mg/dL; Microalb ug/mg Crea 10.6 ug/mg Cr
== END 2021-02-19 13:01 | disposition home or self-care (01) ==
LOC: NCHCN 13:00
PROVIDERS: PCP Family Medicine; Visit Provider Family Medicine
DX: E11.9 Type 2 diabetes mellitus without complications (principal)
CPT/HCPCS: 82043; 82570

== ENCOUNTER 2021-06-14 16:41 | Outpatient (REF) | payer OTHER, SELFPAY ==
[2021-06-14 16:06] LABS: HGB 13.8 g/dL (11.2-15.7); MCH 29.4 pg (27.0-33.0); MCHC 33.7 % (32.0-36.0); MCV 87.2 fL (80-95); MPV 10.5 fL (8.0-11.0); Platelet Count 186 10^3/uL (130-400); RDW 11.9 % (11.7-14.6); RDW-SD 37.9 fL; WBC 3.93 10^3/uL (4.4-10.8)
[2021-06-14 16:20] LABS: ALT 30 U/L (14-59); AST 20 U/L (15-37); Albumin 3.9 g/dL (3.4-5.0); Alkaline Phosphatase 83 U/L (46-116); Anion Gap 8.9 mmol/L (3-11); BUN 16 mg/dL (7-18); Bilirubin, Total 1.5 mg/dL (0.2-1.0); CO2 29.1 mmol/L (21.0-32.0); CREATININE 0.8 mg/dL (0.55-1.02); Calcium 9.4 mg/dL (8.5-10.1); Chloride 98 mmol/L (98-107); Glucose 197 mg/dL (74-106); Potassium 4.3 mmol/L (3.5-5.1); Sodium 136 mmol/L (136-145); Total Protein 7.2 g/dL (6.4-8.2)
[2021-06-14 16:30] LABS: Hemoglobin A1C 7.9 % (<5.7)
== END 2021-06-14 16:42 | disposition home or self-care (01) ==
LOC: NCHCN 16:41
PROVIDERS: PCP Family Medicine; Visit Provider Family Medicine
DX: E11.9 Type 2 diabetes mellitus without complications (principal); I10 Essential (primary) hypertension; K76.0 Fatty (change of) liver, not elsewhere classified
CPT/HCPCS: 80053; 85027; 83036

== ENCOUNTER 2021-07-09 00:55 | Outpatient (CLI) | payer OTHER, SELFPAY ==
--- NOTE | 2021-07-09 09:00 | DI.DEXA_ITS ---
Exam(s) XR DEXA BONE DENSITY W/WO COLLETTE EXAM: XR DEXA BONE DENSITY W/WO COLLETTE CLINICAL HISTORY: POSTMENOPAUSAL, Z78.0; VITAMIN D DEFICIENCY, E55.9 TECHNIQUE: COMPARISON: Comparison examination is 07/30/2008. FINDINGS: Lateral Spine Image: Unremarkable. No compression deformities identified. Left hip: Total T-Score: -1.7. This compares to a 0.0 on the prior examination. Total Z-Score: -0.5 T- and Z-scores: Findings are consistent with osteopenia. Lumbar Spine: Total T-Score: 1.8. This compares to 2.8 on the prior examination. Total Z-Score: 3.5 T- and Z-scores: Within normal limits. IMPRESSION: No evidence of osteoporosis.
== END 2021-07-09 01:15 ==
PROVIDERS: PCP Family Medicine; Visit Provider Family Medicine
DX: Z13.820 Encounter for screening for osteoporosis (principal); Z78.0 Asymptomatic menopausal state; M85.88 Other specified disorders of bone density and structure, other site
CPT/HCPCS: 77080

== ENCOUNTER 2021-08-03 01:48 | Outpatient (CLI) | payer OTHER, SELFPAY ==
--- NOTE | 2021-08-03 | DI.MAMMO_ITS ---
Exam(s) MAMMO SCREENING EXAM: MAMMO SCREENING CLINICAL HISTORY: SCREENING FOR BREAST CANCER Z12.31 TECHNIQUE: Bilateral full field digital CC and MLO mammographic images were obtained with 3D tomosyn thesis and utilizing computer aided detection (CAD). COMPARISON: Available for comparison. FINDINGS: Masses/Architectural Distortion: None seen. There is no change in the breast parenchymal pattern. Microcalcifications: No suspicious pleomorphic-type are seen. Stable calcifications are seen in both breasts. Skin Thickening/Nipple Retraction: None. IMPRESSION: 1. No significant interval change with no specific features of malignancy noted. 2. Unless there is more urgent need, screening mammography is recommended, as per [employer] guidelines. BI-RADS Category 2 - Benign Findings Breast Density - Category B - Scattered areas of fibroglandular density Breast density category C or D implies that the patient has dense breast tissue. Dense breast tissue is very common and is not abnormal but dense breast tissue can make it harder to find cancer on a ma mmogram. Also, dense breast tissue may increase their breast cancer risk. This information about the result of the mammogram report was provided to the patient to raise their awareness. Use this report when you speak with the patient about their risks for breast cancer, which includes their family hist ory. At that time, you may recommend for more screening tests (Ultrasound or MRI) as they might be us eful based on their risk. A negative radiographic report should not delay biopsy if a dominant or clinically suspicious mass is present. Up to ten percent of cancers are not identified on mammography. A negative report may reinforce clinical impression. Adenosis and dense breasts may obscure an underlying neoplasm. False positive reports average 6 to 10%. Patient will receive a letter notifying them of these results.
== END 2021-08-03 02:08 ==
PROVIDERS: PCP Family Medicine; Visit Provider Family Medicine
DX: Z12.31 Encounter for screening mammogram for malignant neoplasm of breast (principal)
CPT/HCPCS: 77063; 77067

== ENCOUNTER 2022-05-30 13:08 | Outpatient (REF) | payer MEDICARE, BC, SELFPAY ==
[2022-05-30 15:44] LABS: Abs Immature Grans 0.03 10^3/uL (0.0-0.06); Absolute Basophil Count 0.05 10^3/uL (0.0-0.2); Absolute Eosinophil Count 0.07 10^3/uL (0.0-0.7); Absolute Lymphocyte Count 1.45 10^3/uL (1.2-3.4); Absolute Monocyte Count 0.36 10^3/uL (0.1-0.8); Absolute Neutrophil Count 6.85 10^3/uL (1.2-6.7); Basophils % 0.6; Eosinophils % 0.8; HCT 36.3 % (36.0-46.0); HGB 12.5 g/dL (11.2-15.7); Immature Grans % 0.3; Lymphocytes % 16.5; MCH 29.3 pg (27.0-33.0); MCHC 34.4 % (32.0-36.0); MCV 85 fL (80-95); MPV 10.1 fL (8.0-11.0); Monocytes % 4.1; Neutrophils % 77.7; Platelet Count 221 10^3/uL (130-400); RBC 4.26 10^6/uL (3.93-5.22); RDW-SD 37.2 fL; WBC 8.81 10^3/uL (4.4-10.8)
[2022-05-30 15:48] LABS: Anion Gap 8.1 mmol/L (3-11); BUN 16 mg/dL (7-18); CO2 27.9 mmol/L (21.0-32.0); CREATININE 0.8 mg/dL (0.55-1.02); Calcium 9.3 mg/dL (8.5-10.1); Chloride 103 mmol/L (98-107); Estimated GFR 81.72 (mL/min/1.73m2); Glucose 159 mg/dL (74-106); Potassium 3.8 mmol/L (3.5-5.1); Sodium 139 mmol/L (136-145)
[2022-05-30 16:09] LABS: Bilirubin Negative (Negative); Blood Negative (Negative); Clarity Sl Cloudy (Clear); Glucose 500 mg/dL (Negative); Ketones Negative (Negative); Leukocyte Esterase Negative (Negative); Nitrite Negative (Negative); Specific Gravity 1.015 (1.005-1.025); Urobilinogen 0.2 EU/dL (Up TO 0.2); pH 5.5 (5-8)
[2022-05-30 17:11] LABS: Hemoglobin A1C 6.9 % (<5.7)
== END 2022-05-30 13:09 | disposition home or self-care (01) ==
LOC: NCHCN 13:08
PROVIDERS: PCP Family Medicine; Visit Provider Family Medicine
DX: E11.9 Type 2 diabetes mellitus without complications (principal); I10 Essential (primary) hypertension; R50.9 Fever, unspecified
CPT/HCPCS: 80048; 81003; 82043; 82570; 83036; 85025

== ENCOUNTER 2022-06-27 01:27 | Outpatient (CLI) | payer MEDICARE, BC, SELFPAY ==
--- NOTE | 2022-06-27 | DI.RAD_ITS ---
Exam(s) XR HAND RT LIMITED EXAM: XR HAND RT LIMITED CLINICAL HISTORY: BILAT HAND PAIN,M65.321,M65.322, TRIGGER DIGITS,DERMATOMYOSITIS. TECHNIQUE: 2D digital imaging was performed. Three views. COMPARISON: No exams were available for comparison FINDINGS: Positioning is limited by patient's inability to straighten the fingers. BONES: No acute fracture is present. No bony destructive lesion is seen. JOINTS: No dislocation present. No significant degenerative changes. SOFT TISSUE: Normal. IMPRESSION: Unremarkable radiographs of the right hand. DATA REPOSITORY: RADIATION DOSE DELIVERED:
--- NOTE | 2022-06-27 | DI.RAD_ITS ---
Exam(s) XR HAND LT LIMITED EXAM: XR HAND LT LIMITED CLINICAL HISTORY: BILAT HAND PAIN,M65.321,M65.322,TRIGGER DIGITS,DERMATOMYOSITIS. TECHNIQUE: 2D digital imaging was performed. Two views. COMPARISON: CR XR HAND RT LIMITED from 06/27/2022 FINDINGS: BONES: No acute fracture is present. No bony destructive lesion is seen. JOINTS: No dislocation present. SOFT TISSUE: Normal. IMPRESSION: Unremarkable radiographs of the left hand. DATA REPOSITORY: RADIATION DOSE DELIVERED:
== END 2022-06-27 01:47 ==
PROVIDERS: PCP Family Medicine; Visit Provider Internal Medicine Rheumatology
DX: M65.321 Trigger finger, right index finger (principal); M65.322 Trigger finger, left index finger; M79.642 Pain in left hand; M79.641 Pain in right hand
CPT/HCPCS: 73120

== ENCOUNTER 2022-09-02 13:50 | Outpatient (REF) | payer MEDICARE, BC, SELFPAY ==
[2022-09-02 19:04] LABS: COMMENT (LAB VIEW ONLY) 31.36 mg/dL; Microalb ug/mg Crea 12.1 ug/mg Cr
== END 2022-09-02 13:51 | disposition home or self-care (01) ==
LOC: NCHCN 13:50
PROVIDERS: PCP Family Medicine; Visit Provider Family Medicine
DX: E11.9 Type 2 diabetes mellitus without complications (principal)
CPT/HCPCS: 82043; 82570

== ENCOUNTER 2022-09-15 01:38 | Outpatient (CLI) | payer MEDICARE, BC, SELFPAY ==
--- NOTE | 2022-09-15 08:30 | DI.MAMMO_ITS ---
Exam(s) MAMMO SCREENING EXAM: MAMMO SCREENING CLINICAL HISTORY: SCREENING, Z12.31. TECHNIQUE: Bilateral full field digital CC and MLO mammographic images were obtained with 3D tomosyn thesis and utilizing computer aided detection (CAD). COMPARISON: Prior mammograms were reviewed. FINDINGS: There are no new significant left breast findings. In the right breast there is an asymmetric density which appears slightly more prominent than on prio r studies, this located 4 cm in from the nipple on the CC view. Measures approximately 7 x 7 mm. Sp ot compression view recommended. There do not appear to be new findings on the ipsilateral MLO view. There are numerous benign-appearing calcifications in both breasts again noted as well as heavily trisha cified density in the right axilla which is probably lymph node. There is no significant new architectural distortion nor skin thickening-retraction. IMPRESSION: 1. No radiographic evidence of malignancy in left breast. 2. Asymmetric density right breast. Spot compression CC view and breast ultrasound recommended BI-RADS Category 0 - Assessment Incomplete: Need additional imaging evaluation Breast Density - Category B - Scattered areas of fibroglandular density Breast density Category C or D implies that the patient has dense breast tissue. Dense breast tissue can make it harder to find cancer on a mammogram. Dense breast tissue is also associated with an incr eased risk of breast cancer. This information about the result of the mammogram report was provided to the patient to raise their awareness. Use this report when you speak with the patient about their risks for breast cancer, which includes their family history. At that time, you may recommend additional screening tests (Ultrasoun d or MRI) as these tests may add significant information. A negative radiographic report should not delay biopsy if a dominant or clinically suspicious mass is present. Up to ten percent of cancers are not identified on mammography. A negative report may reinforce clinical impression. Adenosis and dense breasts may obscure an underlying neoplasm. False positive reports average 6 to 10%. Patient will receive a letter notifying them of these results.
== END 2022-09-15 01:58 ==
LOC: DI 01:38
PROVIDERS: PCP Family Medicine; Visit Provider Family Medicine
DX: Z12.31 Encounter for screening mammogram for malignant neoplasm of breast (principal); R92.8 Other abnormal and inconclusive findings on diagnostic imaging of breast
CPT/HCPCS: 77063; 77067

== ENCOUNTER 2022-09-26 01:15 | Outpatient (CLI) | payer MEDICARE, BC, SELFPAY ==
--- NOTE | 2022-09-26 | DI.US_ITS ---
Exam(s) MG MAMMO SCREEN CALL BACK UNI US BREAST RT LIMITED EXAM: MG MAMMO SCREEN CALL BACK UNI and U/S breast RT limited CLINICAL HISTORY: F/U MAMMO, RT ASYMMETRIC DENSITY, R92.8. TECHNIQUE: Craniocaudal and mediolateral oblique Full Field Digital Mammography views of the right b reast with Computer Aided Diagnosis followed by Tomosynthesis and right breast ultrasound. COMPARISON: Comparison is made with prior examinations. FINDINGS: Mammography/Tomosynthesis: Masses/Architectural Distortion: On the additional views, the area of concern dissipates. No persist ent mass is seen. No areas of architectural distortion are identified. Microcalcifictions: No suspicious pleomorphic-type are seen. Skin Thickening/Nipple Retraction: None. Right breast US: Echotexture: Normal appearance of the glandular tissue. Shadowing: No suspicious foci. Cyst: None. Solid lesions: None seen. Ductal dilation: None. IMPRESSION: 1. No evidence of malignancy is noted. 2. A six-month follow-up right mammogram is requested for re-evaluation. 3. The findings were discussed with the patient on the date of the examination. BI-RADS Category 3 - 6 month - Probably Benign Finding: Recommend follow-up imaging in 6 months Breast Density - Category B - Scattered areas of fibroglandular density Breast density Category C or D implies that the patient has dense breast tissue. Dense breast tissue can make it harder to find cancer on a mammogram. Dense breast tissue is also associated with an incr eased risk of breast cancer. This information about the result of the mammogram report was provided to the patient to raise their awareness. Use this report when you speak with the patient about their risks for breast cancer, which includes their family history. At that time, you may recommend additional screening tests (Ultrasoun d or MRI) as these tests may add significant information. A negative radiographic report should not delay biopsy if a dominant or clinically suspicious mass is present. Up to ten percent of cancers are not identified on mammography. A negative report may reinforce clinical impression. Adenosis and dense breasts may obscure an underlying neoplasm. False positive reports average 6 to 10%. Patient will receive a letter notifying them of these results.
== END 2022-09-26 01:35 ==
LOC: DI 01:15
PROVIDERS: PCP Family Medicine; Visit Provider Family Medicine
DX: R92.8 Other abnormal and inconclusive findings on diagnostic imaging of breast (principal); Z12.31 Encounter for screening mammogram for malignant neoplasm of breast
CPT/HCPCS: 76642; 77063; 77067

== ENCOUNTER 2022-11-18 15:38 | Outpatient (REF) | payer MEDICARE, BC, SELFPAY ==
[2022-11-18 16:58] LABS: HCT 40.4 % (36.0-46.0); HGB 13.8 g/dL (11.2-15.7); MCHC 34.2 % (32.0-36.0); MCV 88 fL (80-95); MPV 10.5 fL (8.0-11.0); Platelet Count 181 10^3/uL (130-400); RDW 12.7 % (11.7-14.6); RDW-SD 40.8 fL; WBC 4.65 10^3/uL (4.4-10.8)
[2022-11-18 17:44] LABS: ALT 31 U/L (14-59); AST 23 U/L (15-37); Alkaline Phosphatase 69 U/L (46-116); Anion Gap 6.9 mmol/L (3-11); BUN 23 mg/dL (7-18); Bilirubin, Total 1.4 mg/dL (0.2-1.0); CO2 28.1 mmol/L (21.0-32.0); CREATININE 0.9 mg/dL (0.55-1.02); Calcium 9.4 mg/dL (8.5-10.1); Calculated LDL 59 mg/dL (<100); Chloride 106 mmol/L (98-107); Cholesterol 126 mg/dL (<200); Estimated GFR 70.95 (mL/min/1.73m2); Glucose 114 mg/dL (74-106); HDL Cholesterol 58 mg/dL (40-60); Potassium 4.4 mmol/L (3.5-5.1); Sodium 141 mmol/L (136-145); Total Protein 7.4 g/dL (6.4-8.2); Triglyceride 46 mg/dL (<150)
[2022-11-18 21:55] LABS: Hemoglobin A1C 6.6 % (<5.7)
== END 2022-11-18 15:39 | disposition home or self-care (01) ==
LOC: NCHCN 15:38
PROVIDERS: PCP Family Medicine; Visit Provider Family Medicine
DX: E11.9 Type 2 diabetes mellitus without complications (principal); K76.0 Fatty (change of) liver, not elsewhere classified; I10 Essential (primary) hypertension
CPT/HCPCS: 80053; 80061; 85027; 83036

== ENCOUNTER → 2023-04-06 01:13 | Outpatient (CLI) | payer MEDICARE, BC, SELFPAY ==
--- NOTE | 2023-04-06 | DI.MAMMO_ITS ---
Exam(s) MG MAMMO DIAGNOSTIC UNI US BREAST RT COMPLETE EXAM: MG MAMMO DIAGNOSTIC UNI-RIGHT AND COMPLETE RIGHT BREAST ULTRASOUND CLINICAL HISTORY: 6 MO FOLLOW UP ABNL RT MAMMO, R92.8. TECHNIQUE: Unilateral BREAST CC AND MLO WELL ADDITIONAL SPOT COMPRESSION AND STRAIGHT LATERAL mammographic images were obtained with 3D tomosynthesis technique and utilizing computer aided detect ion (CAD). COMPLETE RIGHT BREAST ULTRASOUND was also performed, including all 4 quadrants as well as the axillar y region. COMPARISON: Prior mammograms dating back to 2013 were reviewed. FINDINGS: DIAGNOSTIC RIGHT BREAST MAMMOGRAM: Asymmetric density described previously is unchanged. Additional spot compression views renders this area less concerning and similar in appearance to prior mammograms. There are no new malignant-appearing microcalcification groups in the right breast. No new enterprise infrastructure architect ural distortion. COMPLETE RIGHT BREAST ULTRASOUND: There is again no evidence of solid or significant cystic lesions in all 4 quadrants of the right delvis ast. Scanning of the right axilla is negative for adenopathy IMPRESSION: Stable benign-appearing right breast findings as described above. Appropriate follow-up is to keep this patient on her yearly mammogram schedule, this implying that he r next bilateral mammogram is in 6 months from now.. The patient was informed of the findings and follow-up recommendations prior to leaving the [facility] t today. BI-RADS Category 2 - Benign Findings Breast Density - Category B - Scattered areas of fibroglandular density Breast density Category C or D implies that the patient has dense breast tissue. Dense breast tissue can make it harder to find cancer on a mammogram. Dense breast tissue is also associated with an incr eased risk of breast cancer. This information about the result of the mammogram report was provided to the patient to raise their awareness. Use this report when you speak with the patient about their risks for breast cancer, which includes their family history. At that time, you may recommend additional screening tests (Ultrasoun d or MRI) as these tests may add significant information. A negative radiographic report should not delay biopsy if a dominant or clinically suspicious mass is present. Up to ten percent of cancers are not identified on mammography. A negative report may reinforce clinical impression. Adenosis and dense breasts may obscure an underlying neoplasm. False positive reports average 6 to 10%. Patient will receive a letter notifying them of these results.
--- OUTSIDE RECORDS SUMMARY | 2023-04-06 01:15 | XMS_ITS | Continuity of Care Document ---
Author Name Unknown Organization [facility] Address [address] [place] [address] Encounter [facility] FIN NBR [id number] Date(s): 08/19/22 - 08/19/22 [facility] [address] [place] [address]- [place] Discharge Disposition: Home Allergies, Adverse Reactions, Alerts Substance Reaction Severity Status amoxicillin Unknown Unknown Active penicillin V potassium Unknown Unknown Activ e Keflex Unknown Unknown Active Assessment and Plan Future Scheduled Tests Radiology* XR Hand Complete 3+ Views Left 08/19/22 * XR Hand Complete 3+ Views Right 08/19/22 Medications clopidogrel 75 mg =, Oral, Daily, 0 Refill(s) Start Date: 08/19/22 Status: Ordered glipiZIDE 10 mg oral tablet 10 mg = 1 tab, Oral, Daily, # 30 tab, 0 Refill(s) Start Date: 08/19/22 Status: Ordered Jardiance 10 mg oral tablet 10 mg = 1 tab, Oral, every morning, # 30 tab, 0 Refill(s) Start Date: 08/19/22 Status: Ordered Levemir 100 units/mL subcutaneous solution 22 units =, Subcutaneous, Daily, 0 Refill(s) Start Date: 08/19/22 Status: Ordered lisinopril 20 mg =, Oral, Daily, 0 Refill(s) Start Date: 08/19/22 Status: Ordered Vitamin D3 50 mcg =, Oral, Daily, 0 Refill(s) Start Date: 08/19/22 Status: Ordered vitamin E 200 intl units oral capsule 200 IntlUnit = 1 cap, Oral, Daily, # 100 cap, 0 Refill(s) Start Date: 08/19/22 Status: Ordered Problem List Condition Confirmation Course Effective Dates Status Health [facility] Informant Diabetes Confirmed Active Procedures Procedure Date Related Diagnosis Body Site Status Hysterectomy 2009 Completed Appendectomy 2004 Completed Social History Social History Type Response Tobacco Never tobacco user T obacco Use:. Sex Female
--- OUTSIDE RECORDS SUMMARY | 2023-04-06 01:15 | XMS_ITS | Continuity of Care Document ---
Author Name Unknown Organization [facility] Address [address] [place] [address] Encounter [facility] FIN NBR [id number] Date(s): 08/19/22 - 08/19/22 [facility] [address] [place] [address]- [place] Discharge Disposition: Home Allergies, [...]
--- OUTSIDE RECORDS SUMMARY | 2023-04-06 01:15 | XMS_ITS | Continuity of Care Document ---
Author Name Unknown Organization [facility] Address [address] [place] [address] Encounter [facility] NBR [id number] Date(s): 08/08/22 - 08/08/22 [facility] [address] [place], [place] [address] Social History Social History Type Response Sex Female
== END ==
PROVIDERS: PCP Family Medicine; Visit Provider Family Medicine
DX: R92.8 Other abnormal and inconclusive findings on diagnostic imaging of breast (principal); Z12.31 Encounter for screening mammogram for malignant neoplasm of breast
CPT/HCPCS: 76642; 77061; 77065; G0279

== ENCOUNTER 2023-08-30 09:29 | Outpatient (REF) | payer MEDICARE, BC, SELFPAY ==
[2023-08-30 15:17] LABS: HCT 41.5 % (36.0-46.0); HGB 14.5 g/dL (11.2-15.7); MCH 30.1 pg (27.0-33.0); MCHC 34.9 % (32.0-36.0); MCV 86 fL (80-95); MPV 10.3 fL (8.0-11.0); Platelet Count 170 10^3/uL (130-400); RBC 4.81 10^6/uL (3.93-5.22); RDW-SD 38.4 fL; WBC 4.49 10^3/uL (4.4-10.8)
[2023-08-30 15:30] LABS: ALT 38 U/L (14-59); AST 29 U/L (15-37); Albumin 4.1 g/dL (3.4-5.0); Alkaline Phosphatase 75 U/L (46-116); Anion Gap 9.9 mmol/L (3-11); BUN 20 mg/dL (7-18); Bilirubin, Total 2.1 mg/dL (0.2-1.0); CO2 28.1 mmol/L (21.0-32.0); CREATININE 0.8 mg/dL (0.55-1.02); Calcium 9.5 mg/dL (8.5-10.1); Chloride 103 mmol/L (98-107); Estimated GFR 81.21 (mL/min/1.73m2); Glucose 164 mg/dL (74-106); Potassium 4.4 mmol/L (3.5-5.1); Sodium 141 mmol/L (136-145); Total Protein 7.5 g/dL (6.4-8.2)
[2023-08-30 15:59] LABS: Hemoglobin A1C 7.5 % (<5.7)
== END 2023-08-30 09:30 | disposition home or self-care (01) ==
LOC: NCHCN 09:29
PROVIDERS: PCP Family Medicine; Visit Provider Family Medicine
DX: E11.9 Type 2 diabetes mellitus without complications (principal); I10 Essential (primary) hypertension
CPT/HCPCS: 80053; 85027; 83036

== ENCOUNTER 2023-09-06 15:45 | Outpatient (REF) | payer MEDICARE, BC, SELFPAY ==
[2023-09-06 19:27] LABS: GGT 41 U/L (5-55)
[2023-09-07 18:52] LABS: HBs Antibody, Quant <3.1 mIU/mL (See Note); Hepatitis B Surface Ab Negative (See Note)
[2023-09-07 19:01] LABS: Hepatitis B Surface Ag Negative (Negative)
[2023-09-07 19:38] LABS: Hep B Core Antibody Negative (Negative); Hepatitis C Ab w Rflx HCV PCR Negative (Negative)
== END 2023-09-06 15:46 | disposition home or self-care (01) ==
LOC: NCHCN 15:45
PROVIDERS: PCP Family Medicine; Visit Provider Family Medicine
DX: K76.0 Fatty (change of) liver, not elsewhere classified (principal)
CPT/HCPCS: 86704; 86706; 86803; 87340; 82977

== ENCOUNTER → 2023-09-19 03:53 | Outpatient (CLI) | payer MEDICARE, BC, SELFPAY ==
--- NOTE | 2023-09-19 | DI.MAMMO_ITS ---
Exam(s) MAMMO SCREENING EXAM: MAMMO SCREENING CLINICAL HISTORY: Z12.31 Screening. TECHNIQUE: Bilateral full field digital CC and MLO mammographic images were obtained with 3D tomosyn thesis and utilizing computer aided detection (CAD). COMPARISON: Prior mammograms were reviewed. FINDINGS: There has been no significant change in the appearance and distribution of the fibroglandular tissue. Asymmetric densities in tissue bilaterally unchanged from prior mammograms. There are no new spiculated masses nor malignant appearing microcalcification groups. There is no significant architectural distortion nor skin thickening-retraction. IMPRESSION: No radiographic evidence of malignancy. Stable benign-appearing findings. BI-RADS Category 2 - Benign Findings Breast Density - Category B - Scattered areas of fibroglandular density Breast density Category C or D implies that the patient has dense breast tissue. Dense breast tissue can make it harder to find cancer on a mammogram. Dense breast tissue is also associated with an incr eased risk of breast cancer. This information about the result of the mammogram report was provided to the patient to raise their awareness. Use this report when you speak with the patient about their risks for breast cancer, which includes their family history. At that time, you may recommend additional screening tests (Ultrasoun d or MRI) as these tests may add significant information. A negative radiographic report should not delay biopsy if a dominant or clinically suspicious mass is present. Up to ten percent of cancers are not identified on mammography. A negative report may reinforce clinical impression. Adenosis and dense breasts may obscure an underlying neoplasm. False positive reports average 6 to 10%. Patient will receive a letter notifying them of these results.
== END ==
PROVIDERS: PCP Family Medicine; Visit Provider Family Medicine
DX: Z12.31 Encounter for screening mammogram for malignant neoplasm of breast (principal)
CPT/HCPCS: 77063; 77067

== ENCOUNTER 2024-04-17 15:50 | Outpatient (REF) | payer MEDICARE, BC, SELFPAY ==
[2024-04-17 22:19] LABS: COMMENT (LAB VIEW ONLY) 30.33 mg/dL; Microalb ug/mg Crea 19.5 ug/mg Cr
[2024-04-17 22:45] LABS: Hemoglobin A1C 7.8 % (<5.7)
== END 2024-04-17 15:51 | disposition home or self-care (01) ==
LOC: NCHCN 15:50
PROVIDERS: PCP Family Medicine; Visit Provider Family Medicine
DX: E11.9 Type 2 diabetes mellitus without complications (principal)
CPT/HCPCS: 82043; 82570; 83036

== ENCOUNTER 2025-02-18 02:10 | Outpatient (CLI) | payer MEDICARE, BC, SELFPAY ==
--- NOTE | 2025-02-18 | DI.RAD_ITS ---
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 TECHNIQUE: 2D digital imaging was performed. AP and lateral views. COMPARISON: CR RIGHT FEMUR from 02/22/2008 FINDINGS: BONES: No acute fracture is present. No bony destructive lesion is seen. JOINTS: Visualized portion of knee and hip joints are unremarkable. SOFT TISSUE: Large dense calcification is again noted in the in posterior soft tissues of the thigh. This was present on the previous exam but has increased in size somewhat. At the vasculature is heavily calcified. IMPRESSION: Dense calcification in the hamstring reach with increased size compared with 2008. DATA REPOSITORY: RADIATION DOSE DELIVERED:
== END 2025-02-18 02:30 ==
PROVIDERS: PCP Family Medicine; Visit Provider Internal Medicine Rheumatology
DX: M33.13 Other dermatomyositis without myopathy (principal); E83.59 Other disorders of calcium metabolism
CPT/HCPCS: 73552

== ENCOUNTER 2025-04-16 15:08 | Outpatient (REF) | payer MEDICARE, BC, SELFPAY ==
[2025-04-16 21:32] LABS: HCT 42.3 % (36.0-46.0); HGB 14.4 g/dL (11.2-15.7); MCH 29.4 pg (27.0-33.0); MCHC 34.0 % (32.0-36.0); MCV 86 fL (80-95); MPV 10.8 fL (8.0-11.0); Platelet Count 191 10^3/uL (130-400); RBC 4.90 10^6/uL (3.93-5.22); RDW 12.7 % (11.7-14.6); RDW-SD 40.1 fL; WBC 6.62 10^3/uL (4.4-10.8)
[2025-04-16 21:41] LABS: ALT 31 U/L (10-49); AST 31 U/L (<34); Albumin 4.7 g/dL (3.2-5.0); Alkaline Phosphatase 83 U/L (46-116); Anion Gap 9.4 mmol/L (3-11); BUN 17 mg/dL (9-23); Bilirubin, Total 1.9 mg/dL (0.2-1.2); CO2 28.6 mmol/L (20.0-31.0); Calcium 10.0 mg/dL (8.3-10.6); Chloride 103 mmol/L (98-107); Glucose 152 mg/dL (74-106); Potassium 3.5 mmol/L (3.5-5.1); Sodium 141 mmol/L (136-145); Total Protein 7.6 g/dL (5.7-8.2)
[2025-04-17 17:35] LABS: Microalb ug/mg Crea 14.3 ug/mg Cr
== END 2025-04-16 15:09 | disposition home or self-care (01) ==
LOC: NCHCN 15:08
PROVIDERS: PCP Family Medicine; Visit Provider Family Medicine
DX: E11.9 Type 2 diabetes mellitus without complications (principal); I10 Essential (primary) hypertension
CPT/HCPCS: 80053; 85027; 82043; 82570